=== PATIENT | female | born 1955 | race Caucasian/White ===

== ENCOUNTER 2017-10-09 09:20 | Outpatient (CLI) | payer OTHER ==
--- NOTE | 2017-10-09 21:28 | ULT ---
BILATERAL RENAL ULTRASOUND 10/09/17 Ultrasonography of the urinary tract was performed. No recognizable right kidney was seen, nor is the re any blood flow in this region. There is a vague amount of density in the right renal fossa, but on e could not make it out to be a normal kidney, nor was there blood flow in it to think that it was ac tive. A CT would be needed to better demonstrate this area. The left kidney measured 12.7 x .2 cm and appeared normal in all respects. Cortex was normal in thickness and echogenicity. Images through the urinary bladder showed no internal masses. A left ureteral jet was noted but none was seen on the right. IMPRESSION: 1. Normal appearing left kidney. 2. Some vague density in the right renal fossa but no recognizable kidney or blood flow here was seen. Nor was there evidence of a right ureteral jet. CT would be more accurate in showing the area. POS: HOME
== END 2017-10-09 09:21 | disposition home or self-care (01) ==
LOC: BURULT 09:20
PROVIDERS: ATTEND Internal Medicine Geriatric Medicine
DX: R35.0 Frequency of micturition (principal); N28.9 Disorder of kidney and ureter, unspecified
CPT/HCPCS: 76770

== ENCOUNTER 2020-09-26 10:24 | Emergency (ER) | payer MEDICARE, OTHER ==
[2020-09-26 11:53] LABS: Hemoglobin 8.2 g/dL (12.0-16.0); Mean Corpuscular HGB CONC 31.6 g/dL (32.0-36.0); Mean Corpuscular Hemoglobin 29.2 pg (27.0-31.0); Mean Corpuscular Volume 92.3 fL (78.0-98.0); Mean Platelet Volume 6.8 fL (7.4-10.4); Platelet Count 346 thou/uL (130-400); RBC Distribution Width 14.8 % (11.5-14.5); White Blood Cell (WBC) Count 10.6 thou/uL (4.8-10.8)
[2020-09-26 12:10] LABS: ALT (SGPT) 15 U/L (8-55); AST (SGOT) 7 U/L (5-34); Albumin 2.8 g/dL (3.4-4.8); Alkaline Phosphatase 104 U/L (40-110); Anion Gap 16 mmol/L (10-20); BUN (Urea Nitrogen) 12 mg/dL (9.8-20.1); Bilirubin, Total 0.5 mg/dL (0.2-1.2); Calc. Creatinine Clearance 0 mL/min (70-130); Calcium 8.5 mg/dL (7.8-10.44); Carbon Dioxide 24 mmol/L (23-31); Chloride 100 mmol/L (98-107); Estimated GFR-MDRD 61; Globulin 3.4 g/dL (2.4-3.5); Glucose 134 mg/dL (80-115); Potassium 4.1 mmol/L (3.5-5.1); Protein, Total 6.2 g/dL (6.0-8.3); Sodium 136 mmol/L (136-145)
[2020-09-26] MEDS ORDERED: Fentanyl 100 MCG/2 ML VIAL ONE (12:14)
[2020-09-26] MEDS ORDERED: CEFAZOLIN 1 GM VIAL ONE (12:14)
[2020-09-26 12:21] LABS: Band 23 % (5-11); Lymphocytes 21 % (21-51); MDiff Complete? YES; Monocytes 11 % (0-10); Neutrophil 44 % (42-75); Platelet Morphology Comment Appears Adequate; Reactive Lymphocytes 1 % (0-10)
[2020-09-26] MEDS ORDERED: Pantoprazole 40 MG VIAL ONE ×2 (13:08→13:16)
[2020-09-26] MEDS ORDERED: Ondansetron PF 4 MG/2 ML Vial ONE (13:08)
--- NOTE | 2020-09-26 16:24 | RAD ---
LEFT ANKLE 3 VIEWS: Date: 09/26/2020 No fracture or area of bony destruction seen. Soft tissue ulceration and maybe even gas is seen over the lateral malleolus, but the underlying bone appears intact. IMPRESSION: No acute bony finding. POS: HOME
--- NOTE | 2020-09-26 16:26 | RAD ---
RIGHT FOOT 3 VIEWS: Date: 09/26/2020 Considerable soft tissue swelling is noted dorsally and medially. No fracture or area of periosteal r eaction was seen to suggest osteomyelitis. There was no area of bony destruction seen at this time. A little bit of undulation of cortex of the second metatarsal shaft appears chronic in nature and not acute. The joints appear normal. IMPRESSION: Soft tissue abnormalities, but no acute bony findings. POS: HOME
--- NOTE | 2020-09-26 16:32 | RAD ---
RIGHT ANKLE 3 VIEWS: Date: 09/26/2020 Soft tissue swelling is seen around the ankle. There may be some soft tissue air laterally beneath th e lateral malleolus. Nevertheless, no area of bony destruction of periosteal reaction seen to suggest osteomyelitis at this time. The ankle joint appears normal. IMPRESSION: Soft tissue swelling. POS: HOME
== END 2020-09-26 13:35 | disposition short-term general hospital (02) ==
LOC: BURERS 10:24
DX: S91.312A Laceration without foreign body, left foot, initial encounter (principal); S91.311A Laceration without foreign body, right foot, initial encounter; L08.9 Local infection of the skin and subcutaneous tissue, unspecified; I10 Essential (primary) hypertension; M10.9 Gout, unspecified; F41.9 Anxiety disorder, unspecified; F32.9 Major depressive disorder, single episode, unspecified; K92.2 Gastrointestinal hemorrhage, unspecified; Z79.899 Other long term (current) drug therapy
CPT/HCPCS: 80053; 83605; 85025; 86850; 86870; 86900; 86901; 87040; 93005; 96365; 96375; C9113; J0690; J2405; J3010

== ENCOUNTER 2020-10-10 15:54 | Inpatient (IN) | payer MEDICARE, OTHER ==
[2020-10-10] MEDS ORDERED: CAFFEINE PO PRN (18:33)
[2020-10-10] MEDS ORDERED: BUTALBITAL PO PRN (18:33)
[2020-10-10] MEDS ORDERED: ASPIRIN PO PRN (18:33)
[2020-10-10] MEDS ORDERED: PROTEASE PO PRN (18:40)
[2020-10-10] MEDS ORDERED: LIPASE PO PRN (18:40)
[2020-10-10] MEDS ORDERED: AMYLASE PO PRN (18:40)
[2020-10-10] MEDS: Metoprolol Tartrate 25 MG TAB PO SCH (20:46)
[2020-10-10] MEDS: Lorazepam 1 MG TAB PO SCH (20:46)
[2020-10-10] MEDS: HYDROcodone/Acetaminophen 5/325 mg Tablet PO PRN (21:47)
[2020-10-11 04:07] LABS: #Basophils 0.1 thou/uL (0.0-0.2); #Eosinphils 0.1 thou/uL (0.0-0.7); #Monocytes 1.5 thou/uL (0.11-0.59); #Neutrophils 8.1 thou/uL (1.40-6.50); %Basophils 0.7 % (0.0-1.0); %Eosinophils 0.4 % (0.0-10.0); %Lymphocytes 23.4 % (21.0-51.0); %Monocytes 11.7 % (0.0-10.0); %Neutrophils 63.9 % (42.0-75.0); Hemoglobin 10.9 g/dL (12.0-16.0); Mean Corpuscular HGB CONC 32.5 g/dL (32.0-36.0); Mean Corpuscular Hemoglobin 30.4 pg (27.0-31.0); Mean Corpuscular Volume 93.7 fL (78.0-98.0); Mean Platelet Volume 8.5 fL (7.4-10.4); Platelet Count 243 thou/uL (130-400); RBC Distribution Width 17.6 % (11.5-14.5); Red Blood Cell (RBC) Count 3.57 mill/uL (4.20-5.40); White Blood Cell (WBC) Count 12.7 thou/uL (4.8-10.8)
[2020-10-11 04:18] LABS: ALT (SGPT) 18 U/L (8-55); AST (SGOT) 18 U/L (5-34); Albumin 3.1 g/dL (3.4-4.8); Alkaline Phosphatase 68 U/L (40-110); Anion Gap 15 mmol/L (10-20); BUN (Urea Nitrogen) 15 mg/dL (9.8-20.1); Bilirubin, Total 0.4 mg/dL (0.2-1.2); Calc. Creatinine Clearance 91 mL/min (70-130); Calcium 8.7 mg/dL (7.8-10.44); Carbon Dioxide 25 mmol/L (23-31); Chloride 102 mmol/L (98-107); Globulin 2.8 g/dL (2.4-3.5); Glucose 105 mg/dL (80-115); Protein, Total 5.9 g/dL (6.0-8.3); Sodium 138 mmol/L (136-145)
[2020-10-11] MEDS: HYDROcodone/Acetaminophen 5/325 mg Tablet PO PRN ×5 (06:24→22:22)
[2020-10-11] MEDS ORDERED: Nystatin Powder 15 GM BOT TOP PRN (07:56)
[2020-10-11] MEDS: Metoprolol Tartrate 25 MG TAB PO SCH ×2 (08:58→20:49)
[2020-10-11] MEDS: predniSONE 20 MG TAB PO SCH ×2 (08:58→17:41)
[2020-10-11] MEDS: Multivit, Therapeutic 1 TAB PO SCH (08:58)
[2020-10-11] MEDS: Bupropion 150 MG XL TAB PO SCH (08:58)
[2020-10-11] MEDS: AMYLASE PO SCH ×3 (10:01→17:30)
[2020-10-11] MEDS: LIPASE PO SCH ×3 (10:01→17:30)
[2020-10-11] MEDS: PROTEASE PO SCH ×3 (10:01→17:30)
[2020-10-11] MEDS: Dicyclomine 20 MG TAB PO SCH ×2 (14:20→20:49)
[2020-10-11] MEDS ORDERED: FLU VACC QS2020-21(65YR UP)/PF 240 MCG/0.7 ML SYRINGE IM ONE (17:45)
[2020-10-11] MEDS: Lorazepam 1 MG TAB PO SCH (20:49)
[2020-10-11] MEDS ORDERED: HYDROcodone/Acetaminophen 5/325 mg Tablet ONE (22:18)
[2020-10-12] MEDS: HYDROcodone/Acetaminophen 5/325 mg Tablet PO PRN ×4 (03:17→19:32)
[2020-10-12] MEDS: Multivit, Therapeutic 1 TAB PO SCH (08:29)
[2020-10-12] MEDS: Dicyclomine 20 MG TAB PO SCH ×3 (08:29→20:33)
[2020-10-12] MEDS: Bupropion 150 MG XL TAB PO SCH (08:29)
[2020-10-12] MEDS: Metoprolol Tartrate 25 MG TAB PO SCH ×2 (08:30→20:33)
[2020-10-12] MEDS: Saccharomyces boulardii 250 MG CAP PO SCH (08:30)
[2020-10-12] MEDS: predniSONE 20 MG TAB PO SCH ×2 (08:30→16:28)
[2020-10-12] MEDS: Lorazepam 1 MG TAB PO SCH (20:34)
[2020-10-13] MEDS: HYDROcodone/Acetaminophen 5/325 mg Tablet PO PRN ×5 (01:21→21:01)
[2020-10-13] MEDS: Metoprolol Tartrate 25 MG TAB PO SCH ×2 (08:17→20:58)
[2020-10-13] MEDS: Saccharomyces boulardii 250 MG CAP PO SCH (08:20)
[2020-10-13] MEDS: Bupropion 150 MG XL TAB PO SCH ×2 (08:20→20:58)
[2020-10-13] MEDS: Multivit, Therapeutic 1 TAB PO SCH (08:20)
[2020-10-13] MEDS: Dicyclomine 20 MG TAB PO SCH (08:21)
[2020-10-13] MEDS: predniSONE 20 MG TAB PO SCH ×2 (08:21→17:10)
[2020-10-13] MEDS: Lorazepam 1 MG TAB PO SCH (20:58)
[2020-10-14] MEDS: Bupropion 150 MG XL TAB PO SCH ×2 (08:16→21:27)
[2020-10-14] MEDS: Polyethylene Glycol 3350 17 GM Packet PO PRN (08:16)
[2020-10-14] MEDS: Multivit, Therapeutic 1 TAB PO SCH (08:16)
[2020-10-14] MEDS: Metoprolol Tartrate 25 MG TAB PO SCH ×2 (08:16→21:27)
[2020-10-14] MEDS: Saccharomyces boulardii 250 MG CAP PO SCH (08:18)
[2020-10-14] MEDS: predniSONE 20 MG TAB PO SCH ×2 (08:18→17:03)
[2020-10-14] MEDS: HYDROcodone/Acetaminophen 5/325 mg Tablet PO PRN ×4 (08:56→21:31)
[2020-10-14] MEDS: Lorazepam 1 MG TAB PO SCH (21:27)
[2020-10-15] MEDS: HYDROcodone/Acetaminophen 5/325 mg Tablet PO PRN ×3 (06:16→16:37)
[2020-10-15] MEDS ORDERED: [UNRECOGNIZED DRUG - OTHER] PO SCH (09:00)
[2020-10-15] MEDS: Multivit, Therapeutic 1 TAB PO SCH (09:31)
[2020-10-15] MEDS: Saccharomyces boulardii 250 MG CAP PO SCH (09:31)
[2020-10-15] MEDS: Metoprolol Tartrate 25 MG TAB PO SCH ×2 (09:31→21:50)
[2020-10-15] MEDS: Bupropion 150 MG XL TAB PO SCH ×2 (09:31→21:50)
[2020-10-15] MEDS: predniSONE 20 MG TAB PO SCH ×2 (09:32→16:38)
[2020-10-15] MEDS: Polyethylene Glycol 3350 17 GM Packet PO PRN (09:36)
[2020-10-15] MEDS: Lorazepam 1 MG TAB PO SCH (21:50)
[2020-10-16] MEDS: HYDROcodone/Acetaminophen 5/325 mg Tablet PO PRN ×4 (05:11→17:26)
[2020-10-16] MEDS: Metoprolol Tartrate 25 MG TAB PO SCH ×2 (09:18→20:07)
[2020-10-16] MEDS: Bupropion 150 MG XL TAB PO SCH ×2 (09:18→20:07)
[2020-10-16] MEDS: Polyethylene Glycol 3350 17 GM Packet PO PRN (09:19)
[2020-10-16] MEDS: Saccharomyces boulardii 250 MG CAP PO SCH (09:19)
[2020-10-16] MEDS: predniSONE 20 MG TAB PO SCH (09:19)
[2020-10-16] MEDS: Multivit, Therapeutic 1 TAB PO SCH (09:19)
[2020-10-16] MEDS: Lorazepam 1 MG TAB PO SCH (20:07)
[2020-10-17] MEDS: HYDROcodone/Acetaminophen 5/325 mg Tablet PO PRN ×3 (04:03→20:39)
[2020-10-17 06:04] LABS: ALT (SGPT) 22 U/L (8-55); AST (SGOT) 11 U/L (5-34); Albumin 3.2 g/dL (3.4-4.8); Alkaline Phosphatase 69 U/L (40-110); Anion Gap 15 mmol/L (10-20); BUN (Urea Nitrogen) 20 mg/dL (9.8-20.1); Bilirubin, Total 0.4 mg/dL (0.2-1.2); Calc. Creatinine Clearance 67 mL/min (70-130); Calcium 8.8 mg/dL (7.8-10.44); Carbon Dioxide 28 mmol/L (23-31); Chloride 100 mmol/L (98-107); Globulin 2.6 g/dL (2.4-3.5); Glucose 176 mg/dL (80-115); Potassium 3.6 mmol/L (3.5-5.1); Protein, Total 5.8 g/dL (6.0-8.3); Sodium 139 mmol/L (136-145)
[2020-10-17 06:20] LABS: #Eosinphils 0.1 thou/uL (0.0-0.7); #Lymphocytes 1.8 thou/uL (1.20-3.40); #Neutrophils 7.3 thou/uL (1.40-6.50); %Basophils 0.3 % (0.0-1.0); %Eosinophils 0.6 % (0.0-10.0); %Lymphocytes 17.8 % (21.0-51.0); %Monocytes 9.8 % (0.0-10.0); %Neutrophils 71.5 % (42.0-75.0); Hemoglobin 10.4 g/dL (12.0-16.0); Mean Corpuscular HGB CONC 30.5 g/dL (32.0-36.0); Mean Corpuscular Hemoglobin 29.9 pg (27.0-31.0); Mean Platelet Volume 7.9 fL (7.4-10.4); Platelet Count 243 thou/uL (130-400); RBC Distribution Width 17.8 % (11.5-14.5); Red Blood Cell (RBC) Count 3.48 mill/uL (4.20-5.40); White Blood Cell (WBC) Count 10.2 thou/uL (4.8-10.8)
[2020-10-17] MEDS: Bupropion 150 MG XL TAB PO SCH ×2 (09:22→20:31)
[2020-10-17] MEDS: Metoprolol Tartrate 25 MG TAB PO SCH ×2 (09:22→20:30)
[2020-10-17] MEDS: Saccharomyces boulardii 250 MG CAP PO SCH (09:22)
[2020-10-17] MEDS: Multivit, Therapeutic 1 TAB PO SCH (09:23)
[2020-10-17] MEDS: Polyethylene Glycol 3350 17 GM Packet PO PRN (10:55)
[2020-10-17] MEDS: Lorazepam 1 MG TAB PO SCH (20:30)
[2020-10-18] MEDS: HYDROcodone/Acetaminophen 5/325 mg Tablet PO PRN ×3 (06:53→20:58)
[2020-10-18] MEDS: Saccharomyces boulardii 250 MG CAP PO SCH (08:41)
[2020-10-18] MEDS: Multivit, Therapeutic 1 TAB PO SCH (08:41)
[2020-10-18] MEDS: Metoprolol Tartrate 25 MG TAB PO SCH ×2 (08:41→20:58)
[2020-10-18] MEDS: Bupropion 150 MG XL TAB PO SCH ×2 (08:42→20:58)
[2020-10-18 12:34] VITALS: BMI 29.6
[2020-10-18] MEDS: Lorazepam 1 MG TAB PO SCH (20:58)
[2020-10-19 05:43] VITALS: BP 108/55; TEMP 98
[2020-10-19] MEDS: Saccharomyces boulardii 250 MG CAP PO SCH (08:22)
[2020-10-19] MEDS: HYDROcodone/Acetaminophen 5/325 mg Tablet PO PRN (08:22)
[2020-10-19] MEDS: Bupropion 150 MG XL TAB PO SCH (08:22)
[2020-10-19] MEDS: Multivit, Therapeutic 1 TAB PO SCH (08:23)
[2020-10-19] MEDS: Metoprolol Tartrate 25 MG TAB PO SCH (08:24)
--- NOTE | 2020-10-22 09:17 | DIS ---
DATE OF ADMISSION: 10/10/2020 DATE OF DISCHARGE: 10/19/2020 ADMISSION DIAGNOSES: Physical deconditioning, Crohn disease, status post right great toe amputation due to osteomyelitis, pyoderma gangrenosum, candidal intertrigo of the cornelia cleft. SECONDARY DIAGNOSES: Hypertension, anxiety, and depression. PROCEDURES: Routine wound care. HOSPITAL COURSE: A 65-year-old female [facility] to participate with physical therapy, occupational therapy, and wound care, status post acute admission at [facility] in [place], where she was treated for both Crohn disease and skin infection at the right lower extremity. In [place], the patient had imaging including CT scan of the abdomen revealing narrowing of a segment in the sigmoid colon with evidence of colitis. Colonoscopy showed scattered deep ulcers in multiple areas prompting biopsy, which effectively confirmed chronic colitis consistent with Crohn disease. She was subsequently infused with Inflectra 5 mg/kg and is advised to get her second dose of this on 10/25/2020 at the [facility]; thereafter, is to receive this 6 weeks later and then weekly after that. In regard to the patient's skin infection, she was found to have osteomyelitis resulting in amputation of the right great toe; she also underwent debridement of a necrotic wound to the dorsum of her foot with the ulcer being consistent with pyoderma gangrenosum. While here, she was able to participate with physical therapy and occupational therapy while receiving routine wound care. Her pain has been well controlled and her labs have remained stable. She did complete a steroid taper during her stay here in regard to the Crohn disease diagnosis. Her intake and output are stable and she has improved sufficiently to be able to transition to her home setting with continuance of care to be provided via [facility]. Secondary to her residual gait instability, she has been set up with a rolling walker as well. DISPOSITION: The patient will be discharged to her home setting where she lives with her . She may follow up with myself in the clinic in 1 week. She is to follow up at the [facility] on 10/25/2020, at 1300 hours for her second infusion of Inflectra. She has been set up with [facility] for continuance of therapy and wound care. DISCHARGE MEDICATIONS: 1. Wellbutrin 150 mg b.i.d. 2. Fioricet 1 tablet as needed daily. 3. [place] 5/325 one tablet q.4 hours p.r.n. 4. Lorazepam 1 mg at bedtime. 5. Metoprolol tartrate 12.5 mg b.i.d. 6. Theragran multivitamin daily. 7. Pantoprazole 40 mg daily. 8. MiraLAX 17 g p.o. daily as needed. Total time spent in preparation and discharge of this patient greater than 30 minutes. Job ID: [id number]
== END 2020-10-19 13:46 | disposition home or self-care (01) | DRG 948 ==
LOC: BURMED 16:20
PROVIDERS: ADMIT Family Medicine; ATTEND Family Medicine
DX: R53.81 Other malaise (principal); K50.90 Crohn's disease, unspecified, without complications; L88 Pyoderma gangrenosum; M86.8X8 Other osteomyelitis, other site; F41.9 Anxiety disorder, unspecified; F32.9 Major depressive disorder, single episode, unspecified; I10 Essential (primary) hypertension; R26.89 Other abnormalities of gait and mobility; B37.2 Candidiasis of skin and nail; Z88.2 Allergy status to sulfonamides; Z88.6 Allergy status to analgesic agent; Z89.411 Acquired absence of right great toe
CPT/HCPCS: 36415; 80053; 85025; 97602; J7512

== ENCOUNTER 2020-12-16 14:31 | Emergency (ER) | payer MEDICARE, OTHER | END 2020-12-16 15:36 | disposition home or self-care (01) | LOC: BURERS 14:31 | DX: L08.9 Local infection of the skin and subcutaneous tissue, unspecified (principal); I10 Essential (primary) hypertension; M10.9 Gout, unspecified; Z79.899 Other long term (current) drug therapy | CPT/HCPCS: 99283 ==

== ENCOUNTER 2021-01-10 22:32 | Emergency (ER) | payer MEDICARE, OTHER ==
[2021-01-10] MEDS ORDERED: Acetaminophen 500 MG TAB ONE (23:07)
[2021-01-10 23:17] LABS: Hemoglobin 11.3 g/dL (12.0-16.0); Mean Corpuscular HGB CONC 31.7 g/dL (32.0-36.0); Mean Corpuscular Volume 91.6 fL (78.0-98.0); Mean Platelet Volume 9.4 fL (7.4-10.4); Platelet Count 198 thou/uL (130-400); RBC Distribution Width 12.9 % (11.5-14.5); Red Blood Cell (RBC) Count 3.88 mill/uL (4.20-5.40); White Blood Cell (WBC) Count 12.2 thou/uL (4.8-10.8)
[2021-01-10 23:23] LABS: ALT (SGPT) 36 U/L (8-55); AST (SGOT) 69 U/L (5-34); Albumin 3.9 g/dL (3.4-4.8); Alkaline Phosphatase 122 U/L (40-110); Anion Gap 15 mmol/L (10-20); BUN (Urea Nitrogen) 14 mg/dL (9.8-20.1); Bilirubin, Total 0.5 mg/dL (0.2-1.2); Calc. Creatinine Clearance 0 mL/min (70-130); Calcium 9.4 mg/dL (7.8-10.44); Carbon Dioxide 22 mmol/L (23-31); Chloride 101 mmol/L (98-107); Globulin 2.8 g/dL (2.4-3.5); Glucose 141 mg/dL (80-115); Potassium 3.4 mmol/L (3.5-5.1); Protein, Total 6.7 g/dL (5.8-8.1); Sodium 135 mmol/L (136-145)
[2021-01-10] MEDS ORDERED: Ondansetron PF 4 MG/2 ML Vial ONE (23:34)
[2021-01-11 00:41] LABS: Band 59 % (5-11); Lymphocytes 6 % (21-51); MDiff Complete? YES; Neutrophil 35 % (42-75); Platelet Morphology Comment Appears Adequate; RBC Morphology Normal
[2021-01-11 00:48] LABS: Bilirubin Small (Negative); Blood, Urine Negative (Negative); Clarity Clear (Clear); Glucose, Urine (Dipstick) Negative (Negative); Ketone, Urine 15 mg/dL (Negative); Leukocyte Negative (Negative); Nitrite Negative (Negative); Protein, Urine (Dipstick) Negative (Neg-Trace); Urobilinogen 0.2 mg/dL (Less than 2)
== END 2021-01-11 01:22 | disposition home or self-care (01) ==
LOC: BURERS 22:32
DX: B34.9 Viral infection, unspecified (principal); I10 Essential (primary) hypertension; M10.9 Gout, unspecified; Z79.899 Other long term (current) drug therapy
CPT/HCPCS: 71045; 80053; 81003; 83605; 84443; 85025; 87040; 96374; J2405